=== PATIENT | male | born 1965 | race Caucasian/White ===

== ENCOUNTER 2019-05-31 11:32 | Day surgery (SDC) | payer OTHER ==
[~2019-05-31] VITALS: Ht 175.3 cm; Wt 69.4 kg
[~2019-05-31 11:32] MED LIST: CRUTCH2 USE; FEXO60 PO; HYDACE5 PO; IBUP800 PO
[2019-05-31] MEDS ORDERED: ATEN25 (12:04)
[2019-05-31] MEDS ORDERED: LISI20 (12:04)
--- NOTE | 2019-05-31 14:09 | NUR ---
05/31/19 1409 Lissa Ramesh LATE ENTRY----4CC OF SALINE INJECTED INTO RECTAL POLYP-PT TOLERATED THIS FINE
== END 2019-05-31 13:42 | disposition home or self-care (01) ==
LOC: ORSCSDS 11:32
PROVIDERS: Internal Medicine Gastroenterology
PROC: 0DBM8ZX Excision of Descending Colon, Via Natural or Artificial Opening Endoscopic, Diagnostic (ICD-10-PCS; principal; 2019-05-31 12:45)
PROC: 0DBP8ZX Excision of Rectum, Via Natural or Artificial Opening Endoscopic, Diagnostic (ICD-10-PCS; principal; 2019-05-31 12:45)
PROC: 0DBL8ZX Excision of Transverse Colon, Via Natural or Artificial Opening Endoscopic, Diagnostic (ICD-10-PCS; principal; 2019-05-31 12:45)
DX: Z12.11 Encounter for screening for malignant neoplasm of colon (principal); D12.3 Benign neoplasm of transverse colon; D12.4 Benign neoplasm of descending colon; K62.1 Rectal polyp; K64.8 Other hemorrhoids; K57.30 Diverticulosis of large intestine without perforation or abscess without bleeding; F17.210 Nicotine dependence, cigarettes, uncomplicated
CPT/HCPCS: 88305; J2704; J7120

== ENCOUNTER 2022-06-18 07:36 | Day surgery (SDC) | payer OTHER ==
[~2022-06-18] VITALS: Ht 175.3 cm; Wt 73.0 kg
[~2022-06-18 07:36] MED LIST changes: +ATEN25 PO; +LISI20 PO
--- NOTE | 2022-06-18 10:39 | NUR ---
06/18/22 1039 Taniya Lewis ALL COUNTS CORRECT.
--- NOTE | 2022-06-18 11:33 | NUR ---
Discharge instructions reviewed with patient. Patient verbalizes understanding. Copy given to patient to take home. Dressing to procedure site clean, dry, intact with no visible drainage, swelling, erythema or bruising noted. Patient States Post-Procedure ride home has been arranged. Discharged via wheelchair to private car for ride home.
--- NOTE | 2022-06-18 11:38 | NUR ---
PT REPORTING NUMBNESS TO LLE AND IS UNABLE TO BEAR WEIGHT ON IT AT THIS TIME. PROVIDER NOTIFIED. WILL CONTINUE TO MONITOR.
--- NOTE | 2022-06-18 11:51 | NUR ---
PT REPORTING MINOR SESATION IN PREVIOUSLY NUMB AREA ON LATERAL L CALF.
--- NOTE | 2022-06-18 12:52 | NUR ---
PT REPORTING NO CHANGE IN SENSATION IN LLE. PT ASSISTED IN STANDING USING A FWW BUT WAS UNABLE TO BEAR ANY WEIGHT ON HIS L LEG. AWAITING PROVIDER ASSESSMENT.
--- NOTE | 2022-06-18 13:25 | NUR ---
PT W NO IMPROVEMENT W SENSATION IN LLE. AWAITING PROVIDER CONSULTMENT.
--- NOTE | 2022-06-18 13:36 | NUR ---
SCD'S PLACED ON PT. PROVIDER UPDATED W NO NEW ORDERS.
--- NOTE | 2022-06-18 13:45 | NUR ---
PROVIDER AT BEDSIDE AND SPOKE W THE PT. PT EDUCATED ON FALL RISK OF LEAVING W DECREASED SENSATION AND USE OF LLE. PT VERBALIZES UNDERSTANDING OF THESE RISKS.
--- NOTE | 2022-06-18 14:44 | NUR ---
PT REPORTING MINOR IMPROVEMENT OF SENSATION IN LLE BUT IS STILL UNABLE TO BEARE WEIGHT. WILL DC WHEN HE CAN TRANSFER SELF TO .
--- NOTE | 2022-06-18 15:15 | NUR ---
PT ABLE TO TRANSFER SELF TO UNASSISTED. Patient States Post-Procedure ride home has been arranged. Discharged via wheelchair to private car for ride home.
== END 2022-06-18 23:08 | disposition home or self-care (01) ==
LOC: ORSCMMR 07:36 → ORD 08:45 → ORSCMMR 08:45
PROVIDERS: Surgery
PROC: 3E0M05Z Introduction of Adhesion Barrier into Peritoneal Cavity, Open Approach (ICD-10-PCS; principal; 2022-06-18 08:45)
PROC: 0YU60JZ Supplement Left Inguinal Region with Synthetic Substitute, Open Approach (ICD-10-PCS; principal; 2022-06-18 08:45)
DX: K40.90 Unilateral inguinal hernia, without obstruction or gangrene, not specified as recurrent (principal); I10 Essential (primary) hypertension; F17.210 Nicotine dependence, cigarettes, uncomplicated; Z79.899 Other long term (current) drug therapy
CPT/HCPCS: C1781; J0690; J1100; J1885; J2250; J2405; J2704; J3010; J7120